=== PATIENT | female | born 1975 | race Caucasian/White ===

== ENCOUNTER 2022-10-23 14:43 | Outpatient (CLI) | payer OTHER, SELFPAY ==
[2022-10-23 17:42] LABS: Cholesterol* 226 mg/dL (90-199)
[2022-10-23 17:43] LABS: HDL Cholesterol* 72 mg/dL (>=50); LDL Cholesterol Calculated 127 mg/dL (<100); Triglycerides* 136 mg/dL (40-149)
== END 2022-10-23 14:44 | disposition home or self-care (01) ==
LOC: NFLDREF 14:44
PROVIDERS: Visit Provider Obstetrics & Gynecology
DX: Z01.419 Encounter for gynecological examination (general) (routine) without abnormal findings (principal); Z13.6 Encounter for screening for cardiovascular disorders
CPT/HCPCS: 80061